=== PATIENT | male | born 1960 | race Caucasian/White ===

== ENCOUNTER 2021-04-17 09:37 | Emergency (ER) | payer OTHER ==
[~2021-04-17] VITALS: Ht 190.5 cm; Wt 78.9 kg
--- NOTE | 2021-04-17 09:46 | NUR ---
PT IS IN ROOM #2A. DR CLEMENT EVALUATED THE PT.
[2021-04-17] MEDS ORDERED: TDAP DIPH,PERTUSS,TET VAC/PF 0.5 ML DISP.SYRIN IM ONE ×2 (10:00→10:03)
[2021-04-17] MEDS ORDERED: LIDOCAINE HCL 1% 20 ML VIAL IJ ONE (10:00)
[2021-04-17] MEDS ORDERED: ACETAMINOPHEN 325 MG TABLET PO ONE (10:00)
[2021-04-17] MEDS ORDERED: IBUPROFEN 400 MG TABLET PO ONE (10:00)
[2021-04-17] MEDS ORDERED: MORPHINE SULFATE 4 MG/1 ML DISP.SYRIN IM ONE (10:00)
[2021-04-17] MEDS ORDERED: ACETAMINOPHEN 325 MG TABLET ONE (10:02)
[2021-04-17] MEDS ORDERED: MORPHINE SULFATE 2 MG/1 ML DISP.SYRIN ONE (10:02)
[2021-04-17] MEDS ORDERED: IBUPROFEN 400 MG TABLET ONE (10:02)
[2021-04-17] MEDS ORDERED: MORPHINE SULFATE 4 MG/1 ML DISP.SYRIN ONE (10:03)
[2021-04-17] MEDS ORDERED: LIDOCAINE HCL 1% 20 ML VIAL ONE (10:15)
[2021-04-17] MEDS ORDERED: LORAZEPAM 1 MG TABLET ONE (10:26)
[2021-04-17] MEDS ORDERED: LORAZEPAM 0.5 MG TABLET PO ONE (10:30)
[2021-04-17] MEDS ORDERED: LET TOPICAL SOLUTION 8 ML UDC TP ONE (10:30)
[2021-04-17] MEDS ORDERED: LET TOPICAL SOLUTION 8 ML UDC ONE (10:39)
--- NOTE | 2021-04-17 12:07 | NUR ---
PT WAS D/C'd TO HOME. D/C INSTRUCTIONS GIVEN TO THE PT BY DR CLEMENT.
[2021-04-17 12:10] VITALS: BP 132/72
== END 2021-04-17 12:11 | disposition home or self-care (01) ==
LOC: ER 09:37
DX: S51.812A Laceration without foreign body of left forearm, initial encounter (principal); W01.198A Fall on same level from slipping, tripping and stumbling with subsequent striking against other object, initial encounter; Y92.89 Other specified places as the place of occurrence of the external cause; F41.9 Anxiety disorder, unspecified; S60.512A Abrasion of left hand, initial encounter; E78.5 Hyperlipidemia, unspecified
CPT/HCPCS: 12034; 73090; 90471; 90715; 96372; 99284; J2270 ×2; J3490; A4663

== ENCOUNTER 2021-04-27 08:33 | Emergency (ER) | payer OTHER ==
[~2021-04-27] VITALS: Ht 175.3 cm; Wt 79.4 kg
[2021-04-27 09:34] VITALS: BP 140/83
[2021-04-27] MEDS ORDERED: NEOMY/BACITRA/POLYMYXIN B OINT UD PACKET TP ONE (09:39)
== END 2021-04-27 09:40 | disposition home or self-care (01) ==
LOC: ER 08:34
DX: S51.812D Laceration without foreign body of left forearm, subsequent encounter (principal); W45.8XXD Other foreign body or object entering through skin, subsequent encounter; E78.5 Hyperlipidemia, unspecified
CPT/HCPCS: A4663